=== PATIENT | male | born 1960 | race African-American/Black ===

== ENCOUNTER 2017-05-08 09:28 | Emergency (ER) | payer OTHER, MEDICARE ==
[~2017-05-08] VITALS: Ht 182.9 cm; Wt 110.8 kg
[~2017-05-08 09:28] MED LIST: MOTRIN600 MG PO
[2017-05-08] MEDS ORDERED: ROBAXIN500 MG PO (11:00)
[2017-05-08] MEDS ORDERED: NAPROSYN500 MG PO (11:00)
[2017-05-08] MEDS ORDERED: ULTRAM50 MG PO (11:00)
[2017-05-08 11:12] VITALS: BP 152/89
== END 2017-05-08 11:13 | disposition home or self-care (01) ==
LOC: EME 09:28
DX: M25.511 Pain in right shoulder (principal); X50.0XXA Overexertion from strenuous movement or load, initial encounter
CPT/HCPCS: 99281; 99283